=== PATIENT | male | born 1950 | race Caucasian/White ===

== ENCOUNTER 2020-03-27 22:47 | Emergency (ER) | payer MEDICARE ==
[~2020-03-27] VITALS: Ht 175.3 cm; Wt 86.2 kg
[~2020-03-27 22:47] MED LIST: LISINOPRIL10 MG PO
--- NOTE | 2020-03-28 17:18 | EKG ---
[facility] [address] [place], [place] [address] Signed Normal sinus rhythm Normal ECG No previous ECGs available Confirmed by RUDDY JENKINS MD [id number] on 03/28/2020 5:18:28 PM Electronically Signed By: RUDDY JENKINS MD 03/28/20 1718 PATIENT NAME: SCOTT PEREZ Electrocardiogram DATE OF : 48 PHYSICIAN: RUDDY JENKINS MD REPORT #: [id number] REPORT IS CONFIDENTIAL AND NOT TO BE RELEASED WITHOUT AUTHORIZATION
== END 2020-03-28 00:49 | disposition home or self-care (01) ==
LOC: ED 22:47
DX: R55 Syncope and collapse (principal); R11.0 Nausea; I10 Essential (primary) hypertension; Z79.899 Other long term (current) drug therapy
CPT/HCPCS: 80053; 81001; 83690; 84484; 85025; 93005; 93010; 96374; 99284-25; J2405; J7030